=== PATIENT | female | born 1970 | race Caucasian/White ===

== ENCOUNTER 2017-11-23 14:07 | Emergency (ER) | END 2017-11-23 14:33 | disposition left against medical advice (07) | LOC: UCCORT 14:07 | DX: Z53.21 Procedure and treatment not carried out due to patient leaving prior to being seen by health care provider (principal) ==

== ENCOUNTER 2018-08-06 07:02 | Emergency (ER) | payer BC ==
--- OUTSIDE RECORDS SUMMARY | 2018-08-06 07:22 | XMS REPORT ---
:1970 Author Organization [facility] Address [address] [place] [address] Care Team Providers Name Role Phone Robyn Perales Unavailable Unavailable PROBLEMS Type Condition ICD9-CM [id number] Onset Condition SNOMED Code Code Code Dates Status Problem Acute vaginitis N76.0 Active 78355451 Problem Other specified N89.8 Active 87331575 noninflammatory disorders of vagina Problem Leiomyoma of uterus, D25.9 Active 96351602 unspecified Problem Other abnormal and R92.8 Active 073025279 inconclusive findings on diagnostic imaging of breast Problem Excessive and N92.0 Active 580376889 frequent menstruation with regular cycle ALLERGIES No Known Allergies ENCOUNTERS Encounter Location Date Diagnosis [facility] [address] Jul, [place] [id number] [facility] Jun, [place] [id number] [facility] Jun, Excessive and frequent OBGYN [facility], menstruation with regular [place] [id number] cycle N92.0 [facility] Jun, [place] [id number] [facility] 103 Jun, Excessive and frequent OBGYN [facility], menstruation with regular [place] [id number] cycle N92.0 [facility] Jun, Leiomyoma of uterus, OBGYN [facility], unspecified D25.9 [place] [id number] [facility] Jun, OBGYN [facility], [place] [id number] [facility] Jun, OBGYN [facility], [place] [id number] [facility] 103 Jun, Excessive and frequent OBGYN [facility], menstruation with regular [place] [id number] cycle N92.0 and Acute vaginitis N76.0 [facility] Apr, Encounter for routine OBGYN [facility], checking of intrauterine [place] [id number] contraceptive device Z30.431 and Leiomyoma of uterus, unspecified D25.9 [facility] Apr, Leiomyoma of uterus, OBGYN [facility], unspecified D25.9 ; [place] [id number] Abnormal uterine and vaginal bleeding, unspecified N93.9 and Encounter for routine checking of intrauterine contraceptive device Z30.431 [facility] Apr, Noninflammatory disorder OBGYN [facility], of vagina, unspecified [place] [id number] N89.9 [facility] Apr, Noninflammatory disorder OBGYN [facility], of vagina, unspecified [place] [id number] N89.9 and Encounter for screening for infections with a predominantly sexual mode of transmission Z11.3 [facility] March, Encounter for routine OBGYN [facility], checking of intrauterine [place] [id number] contraceptive device Z30.431 [facility] Jan, OBGYN [facility], [place] [id number] [facility] Jan, OBGYN [facility], [place] [id number] [facility] Jan, [facility] [place] [id number] (general) (routine) without abnormal findings Z01.419 ; Encounter for screening mammogram for malignant neoplasm of breast Z12.31 ; Other abnormal and inconclusive findings on diagnostic imaging of breast R92.8 ; Leiomyoma of uterus, unspecified D25.9 and Encounter for contraceptive management, unspecified Z30.9 [facility] Jan, Leiomyoma of uterus, OBGYN [facility], unspecified D25.9 and [place] [id number] Abnormal uterine and vaginal bleeding, unspecified N93.9 [facility] Nov, Dysuria R30.0 and Other OBGYN [facility], specified noninflammatory [place] [id number] disorders of vagina N89.8 [facility] May, [place] [id number] [facility] May, Abnormal uterine and OBGYN [facility], vaginal bleeding, [place] [id number] unspecified N93.9 and Leiomyoma of uterus, unspecified D25.9 [facility] March, [place] [id number] [facility] 103 March, [facility]ation with regular [place] [id number] cycle N92.0 and Leiomyoma of uterus, unspecified D25.9 [facility] 103 March, Leiomyoma of uterus, OBGYN [facility], unspecified D25.9 [place] [id number] [facility] March, [place] [id number] [facility] Feb, [place] [id number] [facility] 103 Feb, Excessive and frequent OBGYN [facility], menstruation with regular [place] [id number] cycle N92.0 and Other abnormal and inconclusive findings on diagnostic imaging of breast R92.8 [facility] Jan, OBGYN [facility], [place] [id number] [facility] Jan, Encounter for [facility], gynecological examination [place] [id number] (general) (routine) without abnormal findings Z01.419 ; Encounter for screening for malignant neoplasm of cervix Z12.4 ; Encounter for screening mammogram for malignant neoplasm of breast Z12.31 and Encounter for screening for infections with a predominantly sexual mode of transmission Z11.3 [facility] Nov, OBGYN [facility], [place] [id number] [facility] Nov, Excessive and frequent OBGYN [facility], menstruation with regular [place] [id number] cycle N92.0 and Leiomyoma of uterus, unspecified D25.9 [facility] Nov, Abnormal uterine and OBGYN [facility], vaginal bleeding, [place] [id number] unspecified N93.9 [facility] Nov, Abnormal uterine and OBGYN [facility], vaginal bleeding, [place] [id number] unspecified N93.9 [facility] Nov, Abnormal uterine and OBGYN [facility], vaginal bleeding, [place] [id number] unspecified N93.9 [facility] Nov, Abnormal uterine and OBGYN [facility], vaginal bleeding, [place] [id number] unspecified N93.9 IMMUNIZATIONS No Known Immunizations SOCIAL HISTORY Never Assessed REASON FOR REFERRAL FUNCTIONAL STATUS PLAN OF CARE Activity Details Follow Up As scheduled Reason: VITAL SIGNS Height 68 in 2018-07-08 Weight 168 lbs 2018-07-08 BMI 25.54 kg/m2 2018-07-08 Blood pressure systolic 112 mm Hg 2018-07-08 Blood pressure diastolic 66 mm Hg 2018-07-08 MEDICATIONS Medication Instructions Dosage Frequency Start Date End Date Duration Status Percocet 5/325 orally One hour 1 tab(s) Jun, 2 days Active 325 mg-5 mg before procedure 2017 and then every 6 hours Valium 10 mg orally Once, one 1 tab(s) Jun, 1 day Active hour before 2017 procedure ibuprofen 800 orally three 1 tab(s) Jun, 5 days Active mg times a day as 2018 needed for pain Zofran 4 mg orally Once, one 1 tab(s) Jun, 1 day Active hour before 2017 procedure Cytotec 200 mcg orally 1 tab with 1 tab(s) Jun, 1 day Active dinner, 1 tab 2018 before bed, 1 tab morning of procedure PROCEDURES No Known procedures RESULTS No Results REASON FOR VISIT presurgical counseling Insurance Providers [facility] Health Member Patient Patient Patient Patient Patient Subscriber Subscriber Subscriber Group Insurance Plan Plan Plan Plan ID Relationship Address Phone Name Date of ID Name Date of No Type Insurance Insurance Insurance Coverage to Subscriber Address Phone Name Dates [facility] [address] [facility] self Shalonda [id number] Blue [id number] 89 Blue [place] 4 Cross/Blue [place] Cross/Blue Shield [address] Shield [place] [address] [facility] self Shalonda [id number] Blue [id number] 89 Blue [place] 4 089 Cross/Blue [place] Cross/Blue Shield [id number] Shield MEDICAL (GENERAL) HISTORY Type Description Date Medical History hypotension Surgical History 1998 Surgical History 1996 Hospitalization History see above
--- OUTSIDE RECORDS SUMMARY | 2018-08-06 07:22 | XMS REPORT ---
:1970 Author Organization [facility] Address [address] [place] [address] Care Team Providers Name Role Phone Nyla Bach Unavailable Unavailable PROBLEMS Type Condition ICD9-CM [id number] Onset Condition SNOMED Code Code Code Dates Status Problem Acute vaginitis N76.0 Active 88041948 Problem Other specified N89.8 Active 91523355 noninflammatory disorders of vagina Problem Leiomyoma of uterus, D25.9 Active 03189526 unspecified Problem Other abnormal and R92.8 Active 018654905 inconclusive findings on diagnostic imaging of breast Problem Excessive and N92.0 Active 034136117 frequent menstruation with regular cycle ALLERGIES No Known Allergies ENCOUNTERS Encounter Location Date Diagnosis [facility] Jul, [place], [place] [id number] [place] [facility] Jun, Excessive and frequent OBGYN [facility], menstruation with regular [place] [id number] cycle N92.0 [facility] 103 Jun, Excessive and frequent OBGYN [facility], menstruation with regular [place] [address] cycle N92.0 [facility] [address] Jun, [place], [place] [id number] [facility] 103 Jun, Excessive and frequent OBGYN [facility], menstruation with regular [place] [address] cycle N92.0 [facility] [address] Jun, Leiomyoma of uterus, OBGYN [facility], unspecified D25.9 [place] [id number] [facility] Jun, OBGYN [facility], [place] [id number] [facility] [address] Jun, OBGYN [facility], [place] [id number] [facility] 103 Jun, Excessive and frequent OBGYN [facility], menstruation with regular [place] [address] cycle N92.0 and Acute vaginitis N76.0 [facility] Apr, Encounter for routine OBGYN [facility], checking of intrauterine [place] [id number] contraceptive device Z30.431 and Leiomyoma of uterus, unspecified D25.9 [facility] [address] Apr, Leiomyoma of uterus, OBGYN [facility], unspecified D25.9 ; [place] [id number] Abnormal uterine and vaginal bleeding, unspecified N93.9 and Encounter for routine checking of intrauterine contraceptive device Z30.431 [facility] Apr, Noninflammatory disorder OBGYN [facility], of vagina, unspecified [place] [address] N89.9 [facility] 103 Apr, Noninflammatory disorder OBGYN [facility], of vagina, unspecified [place] [address] N89.9 and Encounter for screening for infections with a predominantly sexual mode of transmission Z11.3 [facility] 103 March, Encounter for routine OBGYN [facility], checking of intrauterine [place] [id number] contraceptive device Z30.431 [facility] Jan, OBGYN [facility], [place] [id number] [facility] Jan, OBGYN [facility], [place] [id number] [facility] [facility], [facility] [place] [id number] (general) (routine) without abnormal findings Z01.419 ; Encounter for screening mammogram for malignant neoplasm of breast Z12.31 ; Other abnormal and inconclusive findings on diagnostic imaging of breast R92.8 ; Leiomyoma of uterus, unspecified D25.9 and Encounter for contraceptive management, unspecified Z30.[address] [facility] Jan, Leiomyoma of uterus, OBGYN [facility], unspecified D25.9 and [place] [id number] Abnormal uterine and vaginal bleeding, unspecified N93.[address] [facility] Nov, Dysuria R30.0 and Other OBGYN [facility], specified noninflammatory [place] [id number] disorders of vagina N89.[address] [facility] May, [place] [id number] [place] [facility] 103 May, Abnormal uterine and OBGYN [facility], vaginal bleeding, [place] [id number] unspecified N93.9 and Leiomyoma of uterus, unspecified D25.9 [facility] 103 March, [place] [id number] [facility] March, Excessive and frequent OBGYN [facility], menstruation with regular [place] [id number] cycle N92.0 and Leiomyoma of uterus, unspecified D25.9 [place] [facility] 103 March, Leiomyoma of uterus, OBGYN [facility], unspecified D25.9 [place] [id number] [place] [facility] 103 March, [facility] [place] [id number] [facility] Feb, [place], [place] [id number] [facility] 103 Feb, Excessive and frequent OBGYN [facility], menstruation with regular [place] [address] cycle N92.0 and Other abnormal and inconclusive findings on diagnostic imaging of breast R92.8 [facility] 103 Jan, OBGYN [facility], [place] [id number] [facility] Jan, Encounter for OBGYN [facility], gynecological examination [place] [id number] (general) (routine) without abnormal findings Z01.419 ; Encounter for screening for malignant neoplasm of cervix Z12.4 ; Encounter for screening mammogram for malignant neoplasm of breast Z12.31 and Encounter for screening for infections with a predominantly sexual mode of transmission Z11.3 [facility] Nov, OBGYN [facility], [place] [id number] [facility] 103 Nov, Excessive and frequent OBGYN [facility], menstruation with regular [place] [id number] cycle N92.0 and Leiomyoma of uterus, unspecified D25.9 [facility] Nov, Abnormal uterine and OBGYN [facility], vaginal bleeding, [place] [id number] unspecified N93.9 [facility] 103 Nov, Abnormal uterine and OBGYN [facility], vaginal bleeding, [place] [id number] unspecified N93.9 [facility] 103 Nov, Abnormal uterine and OBGYN [facility], vaginal bleeding, [place] [address] unspecified N93.9 [facility] 103 Nov, Abnormal uterine and OBGYN [facility], vaginal bleeding, [place] [id number] unspecified N93.9 IMMUNIZATIONS No Known Immunizations SOCIAL HISTORY Never Assessed REASON FOR REFERRAL FUNCTIONAL STATUS PLAN OF CARE Activity Details Follow Up f/u 2-3 wk post-op Reason: VITAL SIGNS Height 68 in 2018-07-12 Weight 168 lbs 2018-07-12 BMI 25.54 kg/m2 2018-07-12 Blood pressure systolic 100 mm Hg 2018-07-12 Blood pressure diastolic 64 mm Hg 2018-07-12 MEDICATIONS Medication Instructions Dosage Frequency Start Date End Date Duration Status Valium 10 mg orally Once, one 1 tab(s) Jun, 1 day Active hour before 2017 procedure Percocet 5/325 orally One hour 1 tab(s) Jun, 2 days Active 325 mg-5 mg before procedure 2018 and then every 6 hours Zofran 4 mg orally Once, one 1 tab(s) Jun, 1 day Active hour before 2017 procedure ibuprofen 800 orally three 1 tab(s) Jun, 5 days Active mg times a day as 2018 needed for pain Cytotec 200 mcg orally 1 tab with 1 tab(s) Jun, 1 day Active dinner, 1 tab 2018 before bed, 1 tab morning of procedure PROCEDURES Procedure Date Ordered Result Body Site URINE TEST Jul 12, 2018 HYSTEROSCOPY, ABLATION Jul 12, 2018 PARACERVICAL BLOCK Jul 12, 2018 RESULTS No Results REASON FOR VISIT EM ablation, Stress need for contraception Insurance Providers Pending Sale To [facility] Health Member Patient Patient Patient Patient Patient Subscriber Subscriber Subscriber Group Insurance Plan Plan Plan Plan ID Relationship Address Phone Name Date of ID Name Date of No Type Insurance Insurance Insurance Coverage to Subscriber Address Phone Name Dates [facility] [address] [place] self [place] [id number] Blue [id number] 89 Blue [place] 4 089 Cross/Blue [place] Cross/Blue Shield [id number] Shield [employer] [address] [place] self [place]alonda [id number] Blue [id number] 89 Blue [place] 4 Cross/Blue [place] Cross/Blue Shield [id number] Shield MEDICAL (GENERAL) HISTORY Type Description Date Medical History hypotension Surgical History 1998 Surgical History 1996 Hospitalization History see above
--- OUTSIDE RECORDS SUMMARY | 2018-08-06 07:22 | XMS REPORT ---
:1970 Author Organization [facility] Address [address] [place] [address] Care Team Providers Name Role Phone Nyla Bach Unavailable Unavailable PROBLEMS Type Condition ICD9-CM [id number] Onset Condition SNOMED Code Code Code Dates Status Problem Acute vaginitis N76.0 Active 59236685 Problem Other specified N89.8 Active 91806155 noninflammatory disorders of vagina Problem Leiomyoma of uterus, D25.9 Active 94998221 unspecified Problem Other abnormal and R92.8 Active 366717440 inconclusive findings on diagnostic imaging of breast Problem Excessive and N92.0 Active 699643608 frequent menstruation with regular cycle ALLERGIES No Known Allergies ENCOUNTERS Encounter Location Date [facility] Jul, Excessive and frequent OBGYN [facility], menstruation with regular [place] [id number] cycle N92.0 [facility] Jun, Excessive and frequent OBGYN [facility], menstruation with regular [place] [id number] cycle N92.0 [place] [facility] 103 Jun, Excessive and frequent OBGYN [facility], menstruation with regular [place] [id number] cycle N92.0 [place] [facility] Jun, [place], [place] [id number] [facility] Jun, Excessive and frequent OBGYN [facility], menstruation with regular [place] [id number] cycle N92.0 [place] [facility] 103 Jun, Leiomyoma of uterus, OBGYN [facility], unspecified D25.9 [place] [id number] [place] [facility] Jun, [facility]BGYN [facility] [id number] [place] [facility] Jun, OBGYN [facility], [place] [id number] [place] [facility] 103 Jun, Excessive and frequent OBGYN [facility], menstruation with regular [place] [id number] cycle N92.0 and Acute vaginitis N76.0 [place] [facility] Apr, Encounter for routine OBGYN [facility], checking of intrauterine [place] [id number] contraceptive device Z30.431 and Leiomyoma of uterus, unspecified D25.9 [place] [facility] 103 Apr, Leiomyoma of uterus, OBGYN [facility], unspecified D25.9 ; [place] [id number] Abnormal uterine and vaginal bleeding, unspecified N93.9 and Encounter for routine checking of intrauterine contraceptive device Z30.431 [place] [facility] Apr, Noninflammatory disorder OBGYN [facility], of vagina, unspecified [place] [id number] N89.9 [place] [facility] Apr, Noninflammatory disorder OBGYN [facility], of vagina, unspecified [place] [id number] N89.9 and Encounter for screening for infections with a predominantly sexual mode of transmission Z11.3 [place] [facility] March, Encounter for routine OBGYN [facility], checking of intrauterine [place] [id number] contraceptive device Z30.431 [place] [facility] Jan, OBGYN [facility], [place] [id number] [place] [facility] Jan, OBGYN [place], [place] [id number] [facility] 15 Jan, [address] [facility], gynecological examination [place] [id number] (general) (routine) without abnormal findings Z01.419 ; Encounter for screening mammogram for malignant neoplasm of breast Z12.31 ; Other abnormal and inconclusive findings on diagnostic imaging of breast R92.8 ; Leiomyoma of uterus, unspecified D25.9 and Encounter for contraceptive management, unspecified Z30.9 [place] [facility] 15 Jan, 2018 Leiomyoma of uterus, OBGYN [facility], unspecified D25.9 and [place] [id number] Abnormal uterine and vaginal bleeding, unspecified N93.9 [place] [facility] 15 Nov, 2017 Dysuria R30.[address] [facility], specified noninflammatory [place] [id number] disorders of vagina N89.8 [place] [facility] May, OBGYN [place] [id number] [place] [facility] May, Abnormal uterine and OBGYN [facility], vaginal bleeding, [place] [id number] unspecified N93.9 and Leiomyoma of uterus, unspecified D25.9 [place] [facility] March, OBGYN [place], [place] [id number] [place] [facility] March, Excessive and frequent OBGYN [facility], menstruation with regular [place] [id number] cycle N92.0 and Leiomyoma of uterus, unspecified D25.9 [place] [facility] 103 March, Leiomyoma of uterus, OBGYN [facility], unspecified D25.9 [place] [id number] [place] [facility] March, OBGYN [place] [id number] [place] [facility] Feb, [place]BG[place] [id number] [facility] Feb, Excessive and frequent OBGYN [facility], menstruation with regular [place] [id number] cycle N92.0 and Other abnormal and inconclusive findings on diagnostic imaging of breast R92.8 [facility] Jan, OBGYN [facility], [place] [id number] [facility], [facility] [place] [id number] (general) (routine) without abnormal findings Z01.419 ; Encounter for screening for malignant neoplasm of cervix Z12.4 ; Encounter for screening mammogram for malignant neoplasm of breast Z12.31 and Encounter for screening for infections with a predominantly sexual mode of transmission Z11.3 [facility] Nov, OBGYN [place] [id number] [facility] Nov, Excessive and frequent OBGYN [facility], menstruation with regular [place] [id number] cycle N92.0 and Leiomyoma of uterus, unspecified D25.9 [facility] Nov, Abnormal uterine and OBGYN [facility], vaginal bleeding, [place] [id number] unspecified N93.9 [facility] Nov, Abnormal uterine and OBGYN [facility], vaginal bleeding, [place] [id number] unspecified N93.9 [facility] Nov, Abnormal uterine and OBGYN [facility], vaginal bleeding, [place] [id number] unspecified N93.9 [facility] Nov, Abnormal uterine and OBGYN [facility], vaginal bleeding, [place] [id number] unspecified N93.9 IMMUNIZATIONS No Known Immunizations SOCIAL HISTORY Never Assessed REASON FOR REFERRAL FUNCTIONAL STATUS PLAN OF CARE Activity Details Follow Up F/u 3 mo to reassess AUB. Schedule US and annual in January 2019 Reason: VITAL SIGNS Height 68 in 2018-07-29 Weight 168 lbs 2018-07-29 BMI 25.54 kg/m2 2018-07-29 Blood pressure systolic 102 mm Hg 2018-07-29 Blood pressure diastolic 64 mm Hg 2018-07-29 MEDICATIONS No Known Medications PROCEDURES No Known procedures RESULTS No Results REASON FOR VISIT in office EM ablation post op, Is pt interested in permanent sterilization? Not at this time. She will use condoms 100% of time. Insurance Providers [facility] Member Patient Patient Patient Patient Patient Subscriber Subscriber Subscriber Group Insurance Plan Plan Plan Plan ID Relationship Address Phone Name Date of ID Name Date of No Type Insurance Insurance Insurance Coverage to Subscriber Address Phone Name Dates [employer] [address]- [place] self Shalonda [id number] Blue [id number] 89 Blue [place] 4 Cross/Blue [place] Cross/Blue Shield [id number] Shield [place] [address] [place] self Shalonda [id number] Blue [id number] 89 Blue [place] 4 089 Cross/Blue [place] Cross/Blue Shield [id number] Shield MEDICAL (GENERAL) HISTORY Type Description Date Medical History hypotension Surgical History 1998 Surgical History 1996 Surgical History EM ablation 07/12/18 Hospitalization History see above
--- OUTSIDE RECORDS SUMMARY | 2018-08-06 07:22 | XMS REPORT ---
:[address] [facility] Address [address] [place] [address] Care Team Providers Name Role Phone Robyn Perales Unavailable Unavailable PROBLEMS Type Condition ICD9-CM [id number] Onset Condition SNOMED Code Code Code Dates Status Problem Acute vaginitis N76.0 Active 85561994 Problem Other specified N89.8 Active 36877994 noninflammatory disorders of vagina Problem Leiomyoma of uterus, D25.9 Active 90722853 unspecified Problem Other abnormal and R92.8 Active 366078654 inconclusive findings on diagnostic imaging of breast Problem Excessive and N92.0 Active 283911101 frequent menstruation with regular cycle ALLERGIES No Information ENCOUNTERS Encounter Location Date [facility] Jul, [place], [place] [id number] [facility] Jun, OBGYN [place], [place] [id number] [place] [facility] 103 Jun, Excessive and frequent OBGYN [facility], menstruation with regular [place] [id number] cycle N92.0 [place] [facility] Jun, OBGYN [place], [place] [id number] [place] [facility] 103 Jun, Excessive and frequent OBGYN [facility], menstruation with regular [place] [address] cycle N92.0 [place] [facility] 103 Jun, Leiomyoma of uterus, OBGYN [facility], unspecified D25.9 [place] [id number] [place] [facility] Jun, OBGYN [facility] [id number] [place] [facility] Jun, OBGYN [facility], [place] [id number] [place] [facility] 103 Jun, Excessive and frequent OBGYN [facility], menstruation with regular [place] [id number] cycle N92.0 and Acute vaginitis N76.0 [place] [facility] Apr, Encounter for routine OBGYN [facility], checking of intrauterine [place] [id number] contraceptive device Z30.431 and Leiomyoma of uterus, unspecified D25.9 [place] [facility] Apr, Leiomyoma of uterus, OBGYN [facility], unspecified D25.9 ; [place] [id number] Abnormal uterine and vaginal bleeding, unspecified N93.9 and Encounter for routine checking of intrauterine contraceptive device Z30.431 [place] [facility] Apr, Noninflammatory disorder OBGYN [facility], of vagina, unspecified [place] [id number] N89.9 [place] [facility] Apr, Noninflammatory disorder OBGYN [facility], of vagina, unspecified [place] [id number] N89.9 and Encounter for screening for infections with a predominantly sexual mode of transmission Z11.3 [place] [facility] March, Encounter for routine OBGYN [facility], checking of intrauterine [place] [address] contraceptive device Z30.431 [place] [facility] Jan, OBGYN [facility] [id number] [place] [facility] Jan, OBGYN [facility] [place] [id number] [place] [facility] Jan, [facility] examination [place] [id number] (general) (routine) without abnormal findings Z01.419 ; Encounter for screening mammogram for malignant neoplasm of breast Z12.31 ; Other abnormal and inconclusive findings on diagnostic imaging of breast R92.8 ; Leiomyoma of uterus, unspecified D25.9 and Encounter for contraceptive management, unspecified Z30.9 [place] [facility] Jan, [facility] unspecified D25.9 and [place] [id number] Abnormal uterine and vaginal bleeding, unspecified N93.9 [place] [facility] Nov, Dysuria R30.0 and Other OBGYN [facility], specified noninflammatory [place] [id number] disorders of vagina N89.8 [place] [facility] May, [place] [id number] [place] [facility] May, Abnormal uterine and OBGYN [facility], vaginal bleeding, [place] [id number] unspecified N93.9 and Leiomyoma of uterus, unspecified D25.9 [place] [facility] March, [place] [id number] [place] [facility] March, [facility], menstruation with regular [place] [id number] cycle N92.0 and Leiomyoma of uterus, unspecified D25.9 [place] [facility] 103 March, Leiomyoma of uterus, OBGYN [facility], unspecified D25.9 [place] [id number] [place] [facility] March[facility] [place] [id number] [place] [facility] Feb, [place] [id number] [place] [facility] Feb, [facility], menstruation with regular [place] [id number] cycle N92.0 and Other abnormal and inconclusive findings on diagnostic imaging of breast R92.8 [place] [facility] Jan, OBGYN [facility], [place] [address] [place] [facility] 103 Jan, Encounter for [facility], gynecological examination [place] [id number] (general) (routine) without abnormal findings Z01.419 ; Encounter for screening for malignant neoplasm of cervix Z12.4 ; Encounter for screening mammogram for malignant neoplasm of breast Z12.31 and Encounter for screening for infections with a predominantly sexual mode of transmission Z11.3 [place] [facility] Nov, OBGYN [facility] [id number] [place] [facility] 103 Nov, Excessive and frequent OBGYN [facility], menstruation with regular [place] [id number] cycle N92.0 and Leiomyoma of uterus, unspecified D25.9 [place] [facility] 103 Nov, Abnormal uterine and OBGYN [facility], vaginal bleeding, [place] [address] unspecified N93.9 [place] [facility] 103 Nov, Abnormal uterine and OBGYN [facility], vaginal bleeding, [place] [id number] unspecified N93.9 [place] [facility] 103 Nov, Abnormal uterine and OBGYN [facility], vaginal bleeding, [place] [address] unspecified N93.9 [place] [facility] 103 Nov, Abnormal uterine and OBGYN [facility], vaginal bleeding, [place] [id number] unspecified N93.9 IMMUNIZATIONS No Known Immunizations SOCIAL HISTORY Never Assessed REASON FOR REFERRAL FUNCTIONAL STATUS PLAN OF CARE VITAL SIGNS MEDICATIONS Unknown Medications PROCEDURES No Known procedures RESULTS No Results REASON FOR VISIT [facility] Insurance Providers [facility] Member Patient Patient Patient Patient Patient Subscriber Subscriber Subscriber Group Insurance Plan Plan Plan Plan ID Relationship Address Phone Name Date of ID Name Date of No Type Insurance Insurance Insurance Coverage to Subscriber Address Phone Name Dates Jermaine [address] Jermaine Liz [id number] Blue [id number] 89 Blue [place] 4 089 Cross[place] Cross/Blue Shield [id number] Shield Jermaine [address] Jermaine Liz [id number] Blue [id number] 89 Blue [place] 4 Cross/Blue [place] Cross/Blue Shield [id number] Shield MEDICAL (GENERAL) HISTORY Type Description Date Medical History hypotension Surgical History 1998 Surgical History 1996 Hospitalization History see above
--- NOTE | 2018-08-06 07:32 | UC ---
Throat Pain/Nasal Jonathan HPI - HPI Summary HPI Summary: 47-year-old woman who comes to clinic today with a complaint of sore throat. It started yesterday its moderate to severe pain. She tried some ibuprofen which did help the pain some. Minimal rhinorrhea. No ear pain. No chest congestion no wheezing. - History of Current Complaint Stated Complaint: SORE THROAT Time Seen by Provider: 08/06/18 07:28 Hx Last Menstrual Period: 09/16/16 - Allergies/Home Medications Allergies/Adverse Reactions: Allergies Allergy/AdvReac Type Severity Reaction Status Date / Time No Known Allergies Allergy Verified 08/06/18 07:31 Home Medications: Home Medications Ibuprofen TAB* [Motrin TAB* 800 MG] 800 mg PO ONCE PRN 08/06/18 [History Confirmed 08/06/18] PMH/Surg Hx/FS Hx/Imm Hx Previously Healthy: Yes - Surgical History Surgical History: Yes Surgery Procedure, Year, and Place: C-Sections - Family History Known Family History: Positive: Cardiac Disease, Renal Disease Negative: Diabetes - Social History Alcohol Use: 2-3 drinks 1-2 times a week Substance Use Type: None Smoking Status (MU): Never Smoked Tobacco Review of Systems Constitutional: Chills Skin: Negative Eyes: Negative ENT: Sore Throat Respiratory: Negative Cardiovascular: Negative Gastrointestinal: Negative Genitourinary: Negative Motor: Negative Neurovascular: Negative Musculoskeletal: Negative Neurological: Negative Psychological: Negative Is Patient Immunocompromised?: No All Other Systems Reviewed And Are Negative: Yes Physical Exam Triage Information Reviewed: Yes Appearance: Ill-Appearing - mild Vital Signs Reviewed: Yes Eyes: Positive: Conjunctiva Clear ENT: Positive: Pharyngeal erythema, Tonsillar swelling, Tonsillar exudate. Negative: Hoarse voice, Sinus tenderness Neck: Positive: Supple, Enlarged Nodes @ - Anterior Respiratory: Positive: Lungs clear, Normal breath sounds, No respiratory distress Cardiovascular: Positive: RRR Musculoskeletal Exam: Normal Musculoskeletal: Positive: Strength Intact, ROM Intact Neurological Exam: Normal Neurological: Positive: Alert Psychological Exam: Normal Skin Exam: Normal Throat Pain/Nasal Course/Dx - Differential Dx/Diagnosis Provider Diagnoses: STREP PHARYNGITIS Discharge - Sign-Out/Discharge Documenting (check all that apply): Patient Departure All imaging exams completed and their final reports reviewed: No Studies - Discharge Plan Condition: Stable Disposition: HOME Prescriptions: Amoxicillin PO (*) [Amoxicillin 875 MG (*)] 875 mg PO BID #20 tab Fluconazole [Diflucan 150 MG (NF)] 150 mg PO ONCE #1 tab Patient Education Materials: Strep Throat (ED) Referrals: No Primary Care Phys,NOPCP [Primary Care Provider] - Additional Instructions: FOLLOW UP WITH YOUR DOCTOR IF NOT COMPLETELY IMPROVED. GET RECHECKED FOR ANY WORSENING OF YOUR CONDITION OR QUESTIONS OR CONCERNS. - Billing Disposition and Condition Condition: STABLE Disposition: Home - Attestation Statements Document Initiated by Scribe: No
[2018-08-06 07:35] VITALS: BP 100/78
[2018-08-06] MEDS ORDERED: Ibuprofen TAB* 400 MG PO ONE (08:04)
== END 2018-08-06 08:13 | disposition home or self-care (01) ==
LOC: UCCORT 07:02
DX: J02.0 Streptococcal pharyngitis (principal)
CPT/HCPCS: 87651; 99212; A9270-GY; G0463

== ENCOUNTER 2019-05-23 09:28 | Emergency (ER) | payer BC ==
[2019-05-23 09:58] VITALS: BP 116/71
--- NOTE | 2019-05-23 11:16 | UC ---
Headache HPI - HPI Summary HPI Summary: Pt presents with c/o of worsening SWARTZ> Pt states that she was shoveling gravel "a few days ago" and woke up with right side posterior,base of occipital lobe pain and stiffness. Pt states that she then went to see her chiropractor 2 days in a row and had her neck "snapped" with some relief of pain initially with it only to return and worsen. Pt now states that she has dull aching pain and she feels swelling at the base of her right occipital and now has developed throbbing posterior left eye pain. Pt has been taking ibuprofen and tylenol with no improvement. Pt states its the "worst headache" she has ever had. Denies , one sided weakness, loss of vision or difficulty swallowing, loss of sense of smell or change in mentation. - History Of Current Complaint Chief Complaint: UCGeneralIllness Stated Complaint: SORE THROAT,HEADACHE,EARS Time Seen by Provider: 05/23/19 10:21 Hx Obtained From: Patient Hx Last Menstrual Period: uterine ablation ?: No Onset/Duration: Sudden Onset, Lasting Days, Still Present Onset Of Symptoms: Gradual, Still Present, Worse Since(Note Comment) - onset Initially Headache Was: "Worst Headache Ever" Currently Pain Is: Moderate Pain Intensity: 6 Timing: Constant Character: Dull, Throbbing, Pressure Location of Headache: Frontal - left, Occipital - right Aggravating Factor(s): Exertion Allevating Factor(s): Nothing Associated Signs And Symptoms: Positive: Dizziness, Nausea, Neck Pain, Neck Stiffness - Risk Factors SAH Risk Factors: Negative Meningitis Risk Factors: Negative SDH Risk Factors: Negative Temporal Arteritis Risk Factors: Female - Allergies/Home Medications Allergies/Adverse Reactions: Allergies Allergy/AdvReac Type Severity Reaction Status Date / Time No Known Allergies Allergy Verified 05/23/19 09:49 Home Medications: Home Medications Multivitamins/Minerals TAB* [Theragran/minerals TAB*] 1 tab PO DAILY 05/23/19 [ History Confirmed 05/23/19] Naproxen Sodium [Aleve] 220 mg PO DAILY 05/23/19 [History Confirmed 05/23/19] Turmeric 400 mg PO DAILY 05/23/19 [History Confirmed 05/23/19] PMH/Surg Hx/FS Hx/Imm Hx Previously Healthy: Yes - Surgical History Surgical History: Yes Surgery Procedure, Year, and Place: C-Sections. uterine ablation - Family History Known Family History: Positive: Cardiac Disease, Renal Disease Negative: Diabetes - Social History Occupation: Employed Full-time Lives: With Family Alcohol Use: Occasionally Substance Use Type: Marijuana Substance Use Comment - Amount & Last Used: occasional Smoking Status (MU): Never Smoked Tobacco - Immunization History Vaccination Up to Date: Yes Review of Systems All Other Systems Reviewed And Are Negative: Yes Constitutional: Positive: Negative Skin: Positive: Negative Eyes: Positive: Negative ENT: Positive: Negative Respiratory: Positive: Negative Cardiovascular: Positive: Negative Gastrointestinal: Positive: Negative Genitourinary: Positive: Negative Motor: Positive: Negative Neurovascular: Positive: Negative Musculoskeletal: Positive: Negative Neurological: Positive: Headache Psychological: Positive: Negative Is Patient Immunocompromised?: No Physical Exam Triage Information Reviewed: Yes Appearance: Pain Distress Vital Signs: Initial Vital Signs Temp 98.4 F 05/23/19 09:50 Pulse 66 05/23/19 09:50 Resp 18 05/23/19 09:50 BP 116/71 05/23/19 09:50 Pulse Ox 99 05/23/19 09:50 Vital Signs Reviewed: Yes Eye Exam: Normal ENT Exam: Normal Dental Exam: Normal Neck exam: Normal Respiratory Exam: Normal Cardiovascular Exam: Normal Musculoskeletal Exam: Normal Neurological Exam: Normal Psychological Exam: Normal Skin Exam: Normal Diagnostics - Radiology No standard instances Radiology Interpretation Completed By: Radiologist - IMPRESSION: FOCAL HYPOATTENUATION OF THE CORTEX OF THE LEFT INFERIOR PARIETAL LOBE. THE DIFFERENTIAL INCLUDES SUBACUTE TO CHRONIC INFARCT, THOUGH THE IMAGING APPEARANCE IS INDETERMINATE.. RECOMMEND CONSIDERATION OF FURTHER EVALUATION WITH CONTRAST-ENHANCED MRI OF THE BRAIN. Headache Course/Dx - Course Course Of Treatment: I discussed the CT findings with the pt and recommended that she seek advanced care at [facility]. Pt verbalized understanding and agreed to plan of care. - Differential Dx/Diagnosis Differential Diagnosis/HQI/PQRI: Migraine, Sinus Headache, Tension Headache Provider Diagnosis: Headache Discharge - Sign-Out/Discharge Documenting (check all that apply): Patient Departure All imaging exams completed and their final reports reviewed: Yes - Discharge Plan Condition: Stable Disposition: HOME-RECOMMEND TO ED Patient Education Materials: Acute Headache (ED) Referrals: No Primary Care Phys,NOPCP [Primary Care Provider] - [facility] PH[facility]ICIAN REFERRAL [Outside] - If Needed Additional Instructions: Please go directly to [facility]. - Billing Disposition and Condition Condition: STABLE Disposition: Home-Recommend to ED
[2019-05-23] MEDS ORDERED: Ondansetron ODT TAB* 4 MG PO ONE (11:23)
== END 2019-05-23 11:39 | disposition home health service (06) ==
LOC: UCCORT 09:28
DX: R51 Headache (principal)
CPT/HCPCS: 70450; 99212; A9270-GY; G0463

== ENCOUNTER 2019-09-18 07:42 | Emergency (ER) | payer BC ==
[2019-09-18 08:35] VITALS: BP 107/68
--- NOTE | 2019-09-18 09:13 | UC ---
Skin Complaint HPI - HPI Summary HPI Summary: 48 yo female with slightly painful rash left flank x <48 hours no fever had chickenpox as a child recently finished medrol dose jeniffer for occipital neuralgia - History of Current Complaint Chief Complaint: UCSkin Time Seen by Provider: 09/18/19 09:05 Stated Complaint: RASH Hx Obtained From: Patient Hx Last Menstrual Period: UTERINE ABLATION Onset/Duration: Gradual Onset Skin Exposure Onset/Duration: Hours Ago Timing: Constant Onset Severity: Mild Current Severity: Mild Pain Intensity: 1 Pain Scale Used: 0-10 Numeric Location: Discrete Character: Pain, Redness, Raised Aggravating Factor(s): Touch Alleviating Factor(s): Nothing Associated Signs & Symptoms: Positive: Rash, Tenderness. Negative: Nausea, Vomiting, Numbness, Thirst, Diaphoresis, Weakness, Pallor, Shivering, Difficulty Breathing, Fever, Chills, Cough, Wheezing, Chest Pain, Hoarseness, Throat Tightening, Abdominal Pain, Lightheadedness, Syncope, Drainage, Bruising , Red Streaks, Joint Swelling - Allergy/Home Medications Allergies/Adverse Reactions: Allergies Allergy/AdvReac Type Severity Reaction Status Date / Time No Known Allergies Allergy Verified 09/18/19 08:25 Home Medications: Home Medications Aspirin TAB* [Aspirin 325 MG TAB*] 650 mg PO Q6H PRN 09/18/19 [History Confirmed 09/18/19] Cyclobenzaprine TAB* [Flexeril 10 MG TAB*] 10 mg PO TID PRN 09/18/19 [History Confirmed 09/18/19] PMH/Surg Hx/FS Hx/Imm Hx Previously Healthy: Yes - Surgical History Surgical History: Yes Surgery Procedure, Year, and Place: C-Sections. uterine ablation. VEIN STRIPPING - Family History Known Family History: Positive: Cardiac Disease, Hypertension, Renal Disease Negative: Diabetes - Social History Alcohol Use: Occasionally Substance Use Type: None Substance Use Comment - Amount & Last Used: occasional Smoking Status (MU): Never Smoked Tobacco - Immunization History Vaccination Up to Date: Yes Review of Systems All Other Systems Reviewed And Are Negative: Yes Constitutional: Positive: Negative Skin: Positive: Rash Eyes: Positive: Negative ENT: Positive: Negative Respiratory: Positive: Negative Cardiovascular: Positive: Negative Gastrointestinal: Positive: Negative Genitourinary: Positive: Negative Motor: Positive: Negative Neurovascular: Positive: Negative Musculoskeletal: Positive: Negative Neurological: Positive: Negative Psychological: Positive: Negative Physical Exam Triage Information Reviewed: Yes Appearance: Well-Appearing, No Pain Distress, Well-Nourished Vital Signs: Initial Vital Signs Temp 98.1 F 09/18/19 08:27 Pulse 94 09/18/19 08:27 Resp 18 09/18/19 08:27 BP 107/68 09/18/19 08:27 Pulse Ox 100 09/18/19 08:27 Vital Signs Reviewed: Yes Eyes: Positive: Conjunctiva Clear ENT: Positive: Hearing grossly normal, Pharynx normal, TMs normal, Uvula midline. Negative: Nasal congestion, Nasal drainage, Trismus, Muffled voice, Hoarse voice Neck: Positive: Supple, Nontender, No Lymphadenopathy Respiratory: Positive: Lungs clear, Normal breath sounds, No respiratory distress, No accessory muscle use Cardiovascular: Positive: RRR, No Murmur Musculoskeletal: Positive: ROM Intact, No Edema Neurological: Positive: Alert Psychological Exam: Normal Skin Exam: Other - crop of vesicles right t-5 dermatome Course/Dx - Diagnoses Provider Diagnosis: Shingles Discharge ED - Sign-Out/Discharge Documenting (check all that apply): Patient Departure All imaging exams completed and their final reports reviewed: No Studies - Discharge Plan Condition: Stable Disposition: HOME Prescriptions: Famciclovir(NF) [Famvir(NF)] 500 mg PO TID #21 tab Patient Education Materials: Shingles (ED) Referrals: Nereyda Anguiano PA [Primary Care Provider] - 1 Week - Billing Disposition and Condition Condition: STABLE Disposition: Home
== END 2019-09-18 09:23 | disposition home or self-care (01) ==
LOC: UCCORT 07:42
DX: B02.9 Zoster without complications (principal)
CPT/HCPCS: 99212; G0463